=== PATIENT | female | born 1975 | race Caucasian/White ===

== ENCOUNTER 2016-09-29 15:01 | Observation (INO) | payer BC ==
--- NOTE | ~2016-09-29 | HP ---
History And Physical [place] [id number] [id number] NAME: ZACARIAS OSORIO : 75 STATUS : ADM IN PAT#: [id number] AGE: 41 ADM/REG DATE : 09/29/16 MR#: [id number] REPORT SERV DATE: 09/30/16 DICTATED BY: DATE: REPORT STATUS : Draft TRANSCRIBED BY: MODL DATE: 09/30/16 DATE OF ADMISSION: 09/29/2016 This is a very pleasant 41-year-old white female without any cardiac history who reports to have developed chest pain and pressure 5/10 radiating to her left arm with some shortness of breath while walking on Wednesday afternoon. She denies having any nausea, vomiting, or diaphoresis. She reports that her chest pain continued and eased up last night, but is still present. She reports that the chest pain is about a 4/10 with left arm pain. She reports that the pain has never completely resolved, and she denies anything making it better or worse. DICTATION ENDS HERE EKS/MODL Kenna Reyes APN / [id number] CC: Alise Chauhan, MSN, BIT SANDER-BC Shola Dunaway M.D.
--- NOTE | ~2016-09-29 | HP ---
History And Physical [place] [id number] [facility] [place]. [address] NAME: ZACARIAS OSORIO : 75 STATUS : ADM IN [facility]#: [id number] AGE: 41 ADM/REG DATE : 09/29/16 MR#: [id number] REPORT SERV DATE: 09/30/16 DICTATED BY: DATE: REPORT STATUS : Draft TRANSCRIBED BY: MODL DATE: 09/30/16 DATE OF ADMISSION: 09/29/2016 CONTINUATION: This is a very pleasant 41-year-old white female without any cardiac history, who reports that on Wednesday while walking she developed chest pain and pressure 5/10 radiating to her left arm with some shortness of breath. She denies having any nausea, vomiting, diaphoresis, or palpitations during her event. She does report that her chest pain continues, it does ease up, but has not completely resolved. Currently, she reports a chest pain of 4/10 with left arm pain. The patient reports that nothing makes it better or worse, and she does report to have some soreness on palpation to her left armpit area. The patient denies any personal history of myocardial infarction, stroke, DVT, or pulmonary embolus. The patient denies any recent fever or chills. No palpitations. No syncopal episodes. No PND or orthopnea. PAST MEDICAL HISTORY: She denies having any past medical history. SURGICAL HISTORY: Hysterectomy. 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 She is single and has two children. She has been smoking one pack per day for nine years. She is a current smoker. She denies any alcohol use or any illicit drug use. FAMILY HISTORY: She reports that her mother had breast cancer. No cardiac history. She reports that her father had two MIs in his 60s. She does report that her sister at the age of 41 with an [address]. REVIEW OF SYSTEMS: A 14-point review of systems was performed significant for HPI. No other contributory diagnoses identified. ALLERGIES: PENICILLIN, REACTION IS A RASH. HOME MEDICATIONS: 1. Aspirin 81 mg p.o. daily. 2. Tylenol 325 mg p.o. twice a day as needed. PHYSICAL EXAMINATION: VITAL SIGNS: Blood pressure 128/60, heart rate 54, temperature 98.1, respirations 18, O2 saturation 97% on room air. GENERAL: Cooperative, in no apparent distress. HEENT: Head normocephalic, anicteric. Normal EOM. PERRLA. No xanthelasma. Nares patent. Moist mucous membranes. NECK: Trachea midline. No thyromegaly, JVD or bruits. RESPIRATORY: Clear to auscultation bilaterally anterior and posterior. Respirations even and History And Physical [address] [address] NAME: ZACARIAS OSORIO : 75 STATUS : ADM IN [facility]#: [id number] AGE: 41 ADM/REG DATE : 09/29/16 MR#: [id number] REPORT SERV DATE: 09/30/16 DICTATED BY: DATE: REPORT STATUS : Draft TRANSCRIBED BY: MODTereso DATE: 09/30/16 unlabored. No wheezes, rhonchi or crackles. CARDIOVASCULAR: Regular rate and rhythm. No murmur, rub or gallop appreciated. No chest wall tenderness to palpation. ABDOMEN: Soft, nontender, nondistended, normal bowel sounds auscultated throughout. No masses or organomegaly. EXTREMITIES: No peripheral edema. DP/PT and radial pulses palpable bilaterally. No clubbing or cyanosis. SKIN: Warm, dry and intact. Normal turgor. No pallor or cyanosis. NEURO/PSYCH: Alert, oriented x3 with no acute distress. Affect appropriate to current situation. IMAGING: Her chest x-ray shows no acute cardiopulmonary process. EKG done on 09/29/2016 at 1845 hours shows sinus julian 56. Her precision inspector shows sinus julian 57. No ectopy, pauses, or any arrhythmias noted. LABORATORY DATA: Troponins x3 have been less than 0.02. Sodium 140, potassium 3.7, BUN 13, creatinine 0.81, GFR 105, glucose 106, calcium 9.0, magnesium 2.3. White blood cells 5.1, hemoglobin 13.8, hematocrit 40.7, platelets 172. INR 1.1. ASSESSMENT AND PLAN: 1. Substernal chest pain. Troponins x3 have been less than 0.02. Cardiac risk factors include tobacco use and family history. The patient does have some soreness and tenderness on palpation to her left armpit area. No nodules felt on palpation. No abnormalities noted on assessment to that area other than her tenderness. Due to the patient's symptoms, we will keep the patient n.p.o. and plan TMO today. If her stress test shows low risk or no ischemia, patient may be discharged home to be followed up with her PCP in one to two weeks with all the studies being sent to that office. She has been observed in the CPOU overnight for ruling out of myocardial infarction with serial enzymes and serial EKGs. If anything suggestive of ischemia on her stress test, Cardiology referral will be initiated. 2. Tobacco abuse. We have discussed smoking cessation. 3. Left armpit pain. We will defer to her PCP regarding tenderness on palpation to discuss any further testing. EKS/MODL Kenna Reyes APN / [id number] CC: Alise Chauhan, MSN, [employer]VAGE WORKER-[employer] Shola Dunaway M.D.
[2016-09-29 15:53] LABS: BASOPHILS 0.4 %; BASOPHILS ABSOLUTE 0.02 10/3/uL (0.0-0.16); EOSINOPHILS 3.5 %; EOSINOPHILS ABSOLUTE 0.18 10/3/uL (0.0-0.53); HEMATOCRIT 40.7 % (36.0-48.0); HEMOGLOBIN 13.8 g/dL (12.0-16.0); IMMATURE GRANULOCYTES 0.2 %; IMMATURE GRANULOCYTES ABSOLUTE 0.01 10/3/uL (0.0-0.11); LYMPHOCYTES 29.5 %; LYMPHOCYTES ABSOLUTE 1.51 10/3/uL (0.67-4.30); MANUAL DIFF NO %; MEAN CORPUS HGB CONC 33.9 g/dL (32.0-36.0); MEAN CORPUSCULAR HEMOGLOB 32.9 pg (26.0-34.0); MEAN CORPUSCULAR VOLUME 96.9 fL (80-100); MEAN PLATELET VOLUME 10.4 fL (9.2-13.0); MONOCYTES ABSOLUTE 0.36 10/3/uL (0.21-1.20); NEUTROPHILS 59.4 %; NEUTROPHILS ABSOLUTE 3.04 10/3/uL (2.02-8.40); PLATELET COUNT 172 10/3/uL (150-400); RBC DISTRIBUTION WIDTH 12.2 % (12.0-16.0); WHITE BLOOD CELLS 5.1 10/3/uL (4.5-10.5)
[2016-09-29 16:01] LABS: INTERNATIONAL NORMAL RATI 1.1 UNITS (-); PROTIME (NOT ORD) 13.6 SEC (12.0-14.5)
[2016-09-29 16:09] LABS: BUN (BLOOD UREA NITROGEN) 13 MG/DL (6-23); CHEST PAIN PROFILE TAT 0 Hrs 20 Mins; CHLORIDE, SERUM 109 MMOL/L (96-112); CO2 (CARBON DIOXIDE) 28 MMOL/L (24-34); CREATININE 0.81 MG/DL (0.55-1.02); GFR AFRICAN AMERICAN 105 ML/MIN (>=60); GFR NON AFRICAN AMERICAN 90 ML/MIN (>=60); GLUCOSE, SERUM 106 MG/DL (60-99); POTASSIUM, SERUM 3.7 MMOL/L (3.5-5.3); SODIUM, SERUM 140 MMOL/L (135-148); TROPONIN I <0.02 NG/ML (<0.05)
[2016-09-29] MEDS ORDERED: HALF81 PO (16:25)
[2016-09-29] MEDS ORDERED: T PO (16:26)
== END 2016-09-30 13:43 | disposition home or self-care (01) ==
LOC: ER 15:01 → CDU1 17:33 → CDU2 17:53
PROVIDERS: Emergency Medicine
DX: R07.2 Precordial pain (principal); F17.210 Nicotine dependence, cigarettes, uncomplicated; Z90.710 Acquired absence of both cervix and uterus; Z80.3 Family history of malignant neoplasm of breast; Z82.49 Family history of ischemic heart disease and other diseases of the circulatory system; Z88.0 Allergy status to penicillin; Z79.82 Long term (current) use of aspirin; Z79.899 Other long term (current) drug therapy
CPT/HCPCS: 71010; 80048; 83735; 84484; 85025; 85610; 85730; 93005; 93017; 96374; 96375; 99285; A9270-GY; G0378; J2405